=== PATIENT | male | born 1995 | race Caucasian/White ===

== ENCOUNTER 2018-11-01 17:29 | Emergency (ER) | payer BC ==
[2018-11-01] MEDS: BACITRACIN 0.5%/ZINC 28.35 GM OINT TOP (19:00)
[2018-11-01] MEDS: HYDROCODONE/APAP (5/325) TAB PO (19:16)
== END 2018-11-01 20:38 | disposition home or self-care (01) ==
LOC: FTE 17:29
DX: S80.211A Abrasion, right knee, initial encounter (principal); S99.921A Unspecified injury of right foot, initial encounter; V28.9XXA Unspecified motorcycle rider injured in noncollision transport accident in traffic accident, initial encounter
CPT/HCPCS: 73562; 73610-RT; 73630; 99283-25